=== PATIENT | female | born 1975 | race Caucasian/White ===

== ENCOUNTER 2017-03-19 17:08 | Emergency (ER) | payer BC ==
[~2017-03-19] VITALS: Ht 172.7 cm; Wt 112.8 kg
[2017-03-19 17:24] VITALS: TEMP 36.9; Ht 172.7 cm; Wt 112.8 kg
--- NOTE | 2017-03-19 18:57 | EMERGENCY ROOM VISIT NOTE ---
History Report prepared by Marimar: Ghada Vance Under the Supervision of: Dr. Shelton Whitney M.D. First contact with patient: 18:32 Chief Complaint: ABDOMINAL PAIN Stated Complaint: UPPER ABD PAIN,NAUSEA Nursing Triage Summary: "I'm having upper abdominal pain. I called my doctor, he told me to just come here." Pt also c/o nausea, denies vomiting. Also c/o chills. Symptoms ongoing for 3 days. Denies diarrhea. History of Present Illness The patient is a 42 year old white female with a past medical history of IBS and Evangelina's Thyroiditis, who presents to the ED with a cc of intermittent upper abdominal pain beginning 3 days ago. Positive chills, nausea. Negative headache, fevers, chest pain, SOB, vomiting, diarrhea, recent travel, sick contacts or antibiotic use. She rates her discomfort as a 5/10. Eating and drinking worsen her pain. Her LMP was in 2013 due a history of uterine ablation. She has been moving her bowels and urinating with no problems. Her last BM was this morning and normal. The patient called her doctors office for an appointment and states she was unable to get an appointment and was referred to the ED if her symptoms worsened. She admits she did start eating a Ketogenic diet approximately 3 weeks ago which may be related to her current symptoms. + ETOH use, -tobacco use. 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 A total of ten systems were reviewed and were otherwise negative. Past Medical & Surgical Medical Problems: (1) Evangelina's thyroiditis (2) IBS (irritable bowel syndrome) Social History Smoking Status: Never Smoker Alcohol Use: occasionally Drug Use: none Marital Status: single Housing Status: lives with family Occupation Status: employed Current/Historical Medications Scheduled Bsriywe-Inyqpeqnaedtm-Lkduiwzm (Excedrin Migraine), 1 TAB PO PRN UD Levothyroxine Sodium (Levothyroxine Sodium), 1 TAB PO DAILY Omeprazole (Prilosec), 20 MG PO DAILY Phentermine Hcl (Adipex P), 37.5 MG PO DAILY Venlafaxine Hcl (Effexor Extended Rel), 150 MG PO DAILY Scheduled PRN Cetirizine (Zyrtec), 10 MG PO DAILY PRN for ALLERGIC REACTION Cholecalciferol (Vitamin D 1000 Unit), 1,000 INTER.UNIT PO DAILY PRN for Ibuprofen Tab (Motrin), 800 MG PO Q8H PRN for Pain Tramadol (Ultram), 50 MG PO Q6 PRN for Pain Zinc Sulfate (Zinc 15), 1 TAB PO DAILY PRN for PRN Allergies Coded Allergies: Sulfa Antibiotics (Verified Allergy, Severe, ANAPHYLAXIS, 03/19/17) Amoxicillin (Verified Allergy, Unknown, HIVES, 03/19/17) hives Codeine (Verified Adverse Reaction, Severe, DIZZY, 03/19/17) INFO FROM [facility] Physical Exam Vital Signs Date Time Temp Pulse Resp B/P (MAP) Pulse Ox O2 Delivery O2 Flow Rate FiO2 03/19/17 21:21 90 16 116/80 100 03/19/17 19:19 89 18 121/85 100 Room Air 03/19/17 17:24 36.9 110 18 157/97 98 Room Air Physical Exam GENERAL: Awake, alert, well-appearing, NAD HENT: Normocephalic, atraumatic. EYES: Normal conjunctiva. Sclera non-icteric. NECK: Supple. No nuchal rigidity. FROM. RESPIRATORY: CTAB, no rhonchi, wheezing, crackles CARDIAC: RRR, no MRG ABDOMEN: Soft. Some RUQ tenderness, some epigastric tenderness, negative Pham' s sign, negative obturators and psoas. BS+ MSK: No chest wall TTP, no LE edema NEURO: GCS 15, CN 2-12 intact, moves all 4s on command SKIN: No rash or jaundice noted. Medical Decision & Procedures ER Provider Diagnostic Interpretation: Radiology results as stated below per my review and radiologist interpretation: ABDOMINAL ULTRASOUND, RIGHT UPPER QUADRANT HISTORY: RUQ TTP, epigastric pain. COMPARISON: None. FINDINGS: Hepatic echogenicity is increased. No hepatic lesions are identified although sensitivity is diminished on this exam due to suboptimal penetration. There is no biliary ductal dilatation. The common bile duct measures 3 mm in caliber. Pancreatic body is normal. The head and tail are obscured. No gallstones are identified. There may be minimal sludge within the gallbladder. There is no gallbladder wall thickening. There is no right hydronephrosis. IMPRESSION: 1. No gallstones or biliary ductal dilatation. 2. Possible trace sludge within the gallbladder. No gallbladder wall thickening. 3. Fatty liver. 4. Partially obscured pancreas. Electronically signed by: Kendall Ellington M.D. 03/19/2017 7:57 PM Laboratory Results 03/19/17 18:40 Red Blood Count 4.70, Mean Corpuscular Volume 91.9, Mean Corpuscular Hemoglobin 31.9, Mean Corpuscular Hemoglobin Concent 34.7, Mean Platelet Volume 9.7, Neutrophils (%) (Auto) 61.2, Lymphocytes (%) (Auto) 30.3, Monocytes (%) (Auto) 7.6, Eosinophils (%) (Auto) 0.5, Basophils (%) (Auto) 0.3, Neutrophils # (Auto) 5.85, Lymphocytes # (Auto) 2.90, Monocytes # (Auto) 0.73, Eosinophils # (Auto) 0.05, Basophils # (Auto) 0.03 03/19/17 18:40 Test 03/19/17 18:40 White Blood Count 9.57 K/uL (4.8-10.8) Red Blood Count 4.70 M/uL (4.2-5.4) Hemoglobin 15.0 g/dL (12.0-16.0) Hematocrit 43.2 % (37-47) Mean Corpuscular Volume 91.9 fL (80-100) Mean Corpuscular Hemoglobin 31.9 pg (25-34) Mean Corpuscular Hemoglobin Concent 34.7 g/dl (32-36) Platelet Count 256 K/uL (130-400) Mean Platelet Volume 9.7 fL (7.4-10.4) Neutrophils (%) (Auto) 61.2 % Lymphocytes (%) (Auto) 30.3 % Monocytes (%) (Auto) 7.6 % Eosinophils (%) (Auto) 0.5 % Basophils (%) (Auto) 0.3 % Neutrophils # (Auto) 5.85 K/uL (1.4-6.5) Lymphocytes # (Auto) 2.90 K/uL (1.2-3.4) Monocytes # (Auto) 0.73 K/uL (0.11-0.59) Eosinophils # (Auto) 0.05 K/uL (0-0.5) Basophils # (Auto) 0.03 K/uL (0-0.2) RDW Standard Deviation 40.2 fL (36.4-46.3) RDW Coefficient of Variation 11.9 % (11.5-14.5) Immature Granulocyte % (Auto) 0.1 % Immature Granulocyte # (Auto) 0.01 K/uL (0.00-0.02) Urine Color YELLOW Urine Appearance CLOUDY (CLEAR) Urine pH 5.0 (4.5-7.5) Urine Specific [place] 1.017 (1.000-1.030) Urine Protein NEG (NEG) Urine Glucose (UA) NEG (NEG) Urine Ketones 2+ (NEG) Urine Occult Blood NEG (NEG) Urine Nitrite NEG (NEG) Urine Bilirubin NEG (NEG) Urine Urobilinogen NEG (NEG) Urine Leukocyte Esterase NEG (NEG) Urine WBC (Auto) 10-30 /hpf (0-5) Urine RBC (Auto) 0-4 /hpf (0-4) Urine Hyaline Casts (Auto) 1-5 /lpf (0-5) Urine Epithelial Cells (Auto) >30 /lpf (0-5) Urine Bacteria (Auto) 2+ (NEG) Urine Pathogenic Casts /lpf (0) Urine Test NEG (NEG) Anion Gap 10.0 mmol/L (3-11) Est Creatinine Clear Calc Drug Dose 89.6 ml/min Estimated GFR () 72.7 Estimated GFR (Non- 62.8 BUN/Creatinine Ratio 12.3 (10-20) Calcium Level 9.9 mg/dl (8.5-10.1) Total Bilirubin 0.5 mg/dl (0.2-1) Direct Bilirubin 0.2 mg/dl (0-0.2) Aspartate Amino Transf (AST/SGOT) 16 U/L (15-37) Alanine Aminotransferase (ALT/SGPT) 27 U/L (12-78) Alkaline Phosphatase 54 U/L (45-117) Total Protein 8.4 gm/dl (6.4-8.2) Albumin 4.3 gm/dl (3.4-5.0) Lipase 174 U/L (73-393) Laboratory results reviewed by me Medications Administered Medications (Trade) Dose Ordered Sig/Nelly Route Start Time Stop Time Status Last Admin Dose Admin Sodium Chloride 1,000 ml @ 999 mls/hr Q1H1M STAT IV 03/19/17 18:58 03/19/17 19:58 DC 03/19/17 19:19 999 MLS/HR Ondansetron HCl (Zofran Inj) 4 mg NOW STAT IV 03/19/17 18:58 03/19/17 19:01 DC 03/19/17 19:18 4 MG Acetaminophen (Tylenol Tab) 650 mg NOW STAT PO 03/19/17 18:58 03/19/17 19:01 DC 03/19/17 19:18 650 MG Tramadol HCl (Ultram Tab) 50 mg NOW STAT PO 03/19/17 18:58 03/19/17 19:01 DC 03/19/17 19:18 50 MG ED Course 1845: The patient was evaluated in room B5. A complete history and physical exam was performed. 2049: I reevaluated the patient. She is feeling well. I discussed her results and discharge instructions and she verbalized complete understanding and agreement. Medical Decision The patient is a 42 year old white female with a past medical history of IBS and Evangelina's Thyroiditis, who presents to the ED with a cc of intermittent upper abdominal pain beginning 3 days ago. Triage Nursing notes reviewed. The patient's presentation and history were concerning for cholecystitis, cholelithiasis, gastritis and PUD. Patient was evaluated for her epigastric right upper quadrant pain. Had a normal white count and no elevations in her LFTs or lipase. Patient's UA was contaminated and does not have any signs or symptoms of UTI she did not have any burning or increased frequency lower back pain. Patient had a right upper quadrant ultrasound which showed maybe questionable sludge but otherwise, her wall was normal CBD was not dilated and there was no pericholecystic fluid. Patient was tolerating by mouth and did not have any other complaints of pain. Patient was informed of all findings was given advice to potentially help with her gastritis. Patient was instructed to follow-up, discharge, return precautions. Patient agree with the plan of care patient was discharged home. Medication Reconcilliation Current Medication List: was personally reviewed by me Blood Pressure Screening Patient's blood pressure: Elevated blood pressure Blood pressure disposition: Elevated BP felt to be situational Impression Primary Impression: Dyspepsia Additional Impression: Gastritis Scribe Attestation The scribe's documentation has been prepared under my direction and personally reviewed by me in its entirety. I confirm that the note above accurately reflects all work, treatment, procedures, and medical decision making performed by me. Departure Information Dispostion Home / Self-Care Referrals Ede Larkin M.D. (PCP) Patient Instructions ED Gastritis, ED PUD Vs Gastritis, My [facility] Additional Instructions Please return to the emergency department if you have worsening or recurrent symptoms not amenable to at-home treatment. Please call for a follow-up appointment with her primary care physician. Please take your medications as prescribed. If you have other concerns and/or complaints please feel free to also call your primary care physician's office or return the ED for further evaluation, management, and treatment. Please consider eating smaller meals. Please avoid caffeinated beverages, chocolate, citrus fruits, tomatoes, sauces, hot sauces. Please avoid taking Motrin if you're able. If you take Motrin taken with food. Do not take more than 800 mg every 6 hours. If he did have general aches and pains he may take 1000 mg of Tylenol or acetaminophen every 6 hours. Do not take more than 4000 mg in a 24-hour period. Problem Qualifiers Additional Impression: Gastritis Gastritis type: unspecified gastritis Chronicity: unspecified Gastritis bleeding: without bleeding Qualified Codes: K29.70 - Gastritis, unspecified, without bleeding
[2017-03-19] MEDS ORDERED: ONDANSETRON INJ 2 MG/ML 2 ML VIAL IV STA (18:58)
[2017-03-19] MEDS ORDERED: SODIUM CHLORIDE 0.9% 1000ML 1,000 ML IV STA (18:58)
[2017-03-19] MEDS ORDERED: ACETAMINOPHEN 325 MG TAB PO STA (18:58)
[2017-03-19] MEDS ORDERED: TRAMADOL HCL 50 MG TAB PO STA (18:58)
[2017-03-19 19:17] LABS: URINE APPEARANCE CLOUDY (CLEAR); URINE BILIRUBIN NEG (NEG); URINE COLOR YELLOW; URINE EPITHELIAL CELL AUTO >30 /lpf (0-5); URINE NITRITE NEG (NEG); URINE SPECIFIC GRAVITY 1.017 (1.000-1.030); UROBILINOGEN NEG (NEG); ZZUR CULT IF INDIC CLEAN CATCH YES
[2017-03-19 19:21] LABS: BASO % 0.3 %; BASO ABS # 0.03 K/uL (0-0.2); COMPLETE YES; EOS % 0.5 %; HEMATOCRIT 43.2 % (37-47); IG% 0.1 %; LYMPH % 30.3 %; MANUAL MICROSCOPIC REQUIRED? NO; MEAN CELL VOLUME 91.9 fL (80-100); MEAN CORPUSCULAR HEMOGLOBIN 31.9 pg (25-34); MEAN CORPUSCULAR HGB CONC 34.7 g/dl (32-36); MEAN PLATELET VOLUME 9.7 fL (7.4-10.4); MONO % 7.6 %; NEUT % 61.2 %; PLATELET COUNT 256 K/uL (130-400); REVIEW REQ? YES; WHITE BLOOD COUNT 9.57 K/uL (4.8-10.8)
[2017-03-19] MEDS ORDERED: TRAM-10 PO (19:36)
[2017-03-19] MEDS ORDERED: ZINC66TA PO (19:36)
[2017-03-19] MEDS ORDERED: CHOL100027 PO (19:36)
[2017-03-19] MEDS ORDERED: PHEN37.585 PO (19:36)
[2017-03-19] MEDS ORDERED: IBUP-1451 PO (19:36)
[2017-03-19] MEDS ORDERED: CETI10TA84 PO (19:36)
[2017-03-19] MEDS ORDERED: VENL150C56 PO (19:36)
[2017-03-19] MEDS ORDERED: ASPI-390 PO (19:36)
[2017-03-19] MEDS ORDERED: PRLSR20 PO (19:36)
[2017-03-19] MEDS ORDERED: LEVO75TA5 PO (19:36)
[2017-03-19 19:38] LABS: BUN/CREATININE RATIO 12.3 (10-20); CALCIUM 9.9 mg/dl (8.5-10.1); CREATININE 1.1 mg/dl (0.60-1.20); POTASSIUM 3.4 mmol/L (3.5-5.1)
--- NOTE | 2017-03-19 19:58 | DIAGNOSTIC IMAGING REPORT ---
ABDOMINAL ULTRASOUND, RIGHT UPPER QUADRANT HISTORY: RUQ TTP, epigastric pain. COMPARISON: None. FINDINGS: Hepatic echogenicity is increased. No hepatic lesions are identified although sensitivity is diminished on this exam due to suboptimal penetration. There is no biliary ductal dilatation. The common bile duct measures 3 mm in caliber. Pancreatic body is normal. The head and tail are obscured. No gallstones are identified. There may be minimal sludge within the gallbladder. There is no gallbladder wall thickening. There is no right hydronephrosis. IMPRESSION: 1. No gallstones or biliary ductal dilatation. 2. Possible trace sludge within the gallbladder. No gallbladder wall thickening. 3. Fatty liver. 4. Partially obscured pancreas. Electronically signed by: Kendall Ellington M.D. 03/19/2017 7:57 PM Dictated Date/Time: 03/19/2017 7:55 PM
[2017-03-19 21:21] VITALS: BP 116/80; PULSE 90; O2SAT 100
== END 2017-03-19 21:23 | disposition home or self-care (01) ==
LOC: C.EDB 17:09
DX: K29.70 Gastritis, unspecified, without bleeding (principal); K58.9 Irritable bowel syndrome, unspecified; E06.3 Autoimmune thyroiditis; Z79.899 Other long term (current) drug therapy

== ENCOUNTER 2025-06-15 07:17 | Inpatient (IN) ==
--- NOTE | 2025-06-05 10:51 | Anesthesiology Consultation ---
Date of Service June 05, 2025 Assessment & Plan (1) Encounter for pre-operative examination: - Infectious disease screening: Per assessment on 06/05/25- No known recent infectious disease contacts or current infectious disease symptoms. - Preop testing: No recent/preop EKG received. Will order EKG for DOS. Chart Review Chart Review: Acceptable Risk for Surgery (pending preop EKG DOS) and Patient NOT seen in Pre Admission Testing History Surgery Operation Date: 06/15/25 07:00 Proposed Procedures p Total Abdominal Hysterectomy, Preservation of Ovaries - Carmelo Ramsey MD Height/Weight Height: 5 ft 9 in Weight: 134.717 kg Allergies Allergy/AdvReac Type Severity Reaction Status Date / Time Sulfa (Sulfonamide Allergy Severe ANAPHYLAXIS Verified 06/05/25 10:24 Antibiotics) amoxicillin Allergy Unknown HIVES Verified 06/05/25 10:24 codeine AdvReac Severe DIZZY Verified 06/05/25 10:24 Medications Home Medications Medication Instructions Recorded Confirmed Last Taken Ibuprofen Tab (MOTRIN) 800 mg PO Q8H PRN Pain #0 tabs 03/19/17 Unknown Vitamin B-12 1 dose PO DAILY 06/05/25 06/05/25 Unknown acetaminophen 325 mg tablet 325 mg PO QID PRN Pain 06/05/25 06/05/25 Unknown (Tylenol) albuterol sulfate 90 mcg/actuation 2 puff inhalation 6XD PRN sob 06/05/25 06/05/25 Unknown aerosol inhaler azithromycin 250 mg tablet 250 mg PO DAILY ear infection 06/05/25 06/05/25 Unknown (Zithromax Z-Torrey) bupropion HCl 300 mg 24 hr tablet, 300 mg PO QAM 06/05/25 06/05/25 Unknown extended release (Wellbutrin XL) buspirone 5 mg tablet 5 mg PO BID 06/05/25 06/05/25 Unknown cetirizine 10 mg tablet 10 mg PO HS 06/05/25 06/05/25 Unknown cholecalciferol (vitamin D3) 50 50 mcg PO DAILY 06/05/25 06/05/25 Unknown mcg (2,000 unit) tablet (Vitamin D3) echinacea 450 mg capsule 900 mg PO DAILY 06/05/25 06/05/25 Unknown fluticasone propionate 50 1 spray intranasal DAILY 06/05/25 06/05/25 Unknown mcg/actuation nasal spray,suspension ibuprofen 400 mg tablet 400 mg PO Q6H PRN Pain 06/05/25 06/05/25 Unknown levothyroxine 75 mcg tablet 75 mcg PO QAM 06/05/25 06/05/25 Unknown magnesium 1 tab PO DAILY 06/05/25 06/05/25 Unknown metformin 500 mg tablet 500 mg PO HS 06/05/25 06/05/25 Unknown multivitamin 1 tab PO QAM 06/05/25 06/05/25 Unknown omega-3 fatty acids 1,000 mg PO DAILY 06/05/25 06/05/25 Unknown omeprazole 20 mg tablet,delayed 20 mg PO HS 06/05/25 06/05/25 Unknown release sertraline 50 mg tablet 50 mg PO QAM 06/05/25 06/05/25 Unknown turmeric 400 mg capsule 400 mg PO DAILY 06/05/25 06/05/25 Unknown Past Medical History Medical History Acid reflux Anxiety and depression Asthma Exercise induced, prn inhaler Ear infection Will complete abx 06/06/25 Evangelina's thyroiditis Hx of gastritis IBS (irritable bowel syndrome) Morbid obesity PCOS (polycystic ovarian syndrome) Seasonal allergies Snores Occasional Past Family History Family History Other No family history of adverse response to anesthesia Past Surgical History Surgical History History of endometrial ablation History of esophagogastroduodenoscopy (EGD) Hx of colonoscopy Hx of wisdom tooth extraction Social History Smoking Status: Never smoker Do You Dip or Chew Tobacco: No Hx Alcohol Use: No Hx Substance Use: No (otc cbd gummies prn - "has not used in a while") Testing Laboratory Results 05/31/25 WBC 4.42 H/H 13.0/41.2 PLATELETS 261 SODIUM 137 POTASSIUM 4.7 CHLORIDE 102 CO2 25 BUN 14 CREATININE 1.0 GLUCOSE 85 TSH 2.43 FREE T4 1.3 Chest X-Ray Date: 08/17/24 Findings: + NAD
[~2025-06-15 07:17] MED LIST: ACETAMINOPHEN 1000 MG/100 ML IV IV ONE
[2025-06-15 07:26] LABS: Hematocrit (blood only) 40.2 % (37.0-47.0); Hemoglobin 13.4 g/dl (12.0-16.0); Immature Granulocytes # (auto) 0.02 K/uL (0.01-0.20); Immature Granulocytes % (auto) 0.3 %; Mean Corpuscular Hemoglobin 29.6 pg (25.0-34.0); Mean Corpuscular Volume 88.9 fL (80.0-100.0); Platelet Count 254 K/uL (130-400); RDW Standard Deviation 40.5 fL (36.4-46.3); Red Blood Count 4.52 M/uL (4.20-5.40); White Blood Count 6.04 K/ul (4.8-10.8)
[2025-06-15] MEDS ORDERED: PROPOFOL IV EMULSION 10 MG/ML 20 ML VIAL IV ONE (07:57)
[2025-06-15] MEDS ORDERED: ROCURONIUM BROMIDE 10 MG/ML 5 ML VIAL IV ONE ×2 (07:57→09:33)
[2025-06-15] MEDS ORDERED: ONDANSETRON INJ 2 MG/ML 2 ML VIAL ONE ×2 (07:57→11:46)
[2025-06-15] MEDS ORDERED: LIDOCAINE 2% 2 ML VIAL/AMP(20MG/ML) INFIL ONE (07:57)
[2025-06-15] MEDS ORDERED: DEXAMETHASONE SOD INJ 4 MG/ML VIAL ONE (07:57)
[2025-06-15] MEDS ORDERED: MIDAZOLAM HCL 1 MG/ML 2ML VIAL ONE (07:58)
[2025-06-15] MEDS: CIPROFLOXACIN / D5W 400 MG/200 ML BAG IV SCH (08:01)
[2025-06-15] MEDS: LR 15ML/HR IV SCH (08:01)
[2025-06-15] MEDS ORDERED: MoRPHine SULFATE PF 1 MG/ML 10 ML AMP/VIAL ONE (08:29)
[2025-06-15] MEDS ORDERED: BUPIVACAINE 0.25% PF 30 ML VIAL ONE (08:34)
--- NOTE | 2025-06-15 08:38 | History & Physical Bridge Note ---
Date of Service June 15, 2025 History & Physical Bridge Note I have examined the patient, reviewed the History & Physical and in the interval since the performance of the History & Physical I have noted the following changes of clinical significance: no changes noted
[2025-06-15] MEDS: CLINDAMYCIN/D5W 900 MG/50 ML BAG IV SCH (09:26)
[2025-06-15] MEDS ORDERED: KETAMINE HCL 10MG/ML SYR ONE (09:31)
[2025-06-15] MEDS ORDERED: PHENYLEPHRINE 100MCG/ML 5ML SYR ONE (09:38)
[2025-06-15] MEDS ORDERED: DROPERIDOL 5 MG/2 ML VIAL ONE (09:45)
[2025-06-15] MEDS ORDERED: HYDROmorphone INJ 2 MG/ML SYR/VIAL ONE (10:47)
[2025-06-15] MEDS ORDERED: SUGAMMADEX SODIUM 200 MG/2 ML VIAL IV ONE (11:32)
[2025-06-15] MEDS: HEPARIN (PORCINE) 1000 UNIT/ML 10 ML (CATH LAB USE ONLY) ONE (11:43)
--- NOTE | 2025-06-15 12:12 | Operative Report ---
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 Then general anesthesia was administered. Vagina and abdomen was prepped with Betadine solution. Hardy catheter was inserted aseptically bladder connected to gravity drainage. Lower abdomen was prepped in usual sterile fashion with an alcohol-based sterilizing solution suprapubic area had been shaved. Compression stockings were applied. Patient was draped in usual sterile fashion. Pfannenstiel incision was made carried down to the anterior fascia by sharp dissection. Hemostasis was cleared by electrocauterization. Fascia was incised transversely from the underlying muscle and sharp dissection. Recti muscles were in the midline. The peritoneum was carefully raised and entered. An O'Vinnie- O'Flores self-retaining retractor was inserted into the abdomen. 4 laparotomy pads were used to pack off the intestines. Inspection of the pelvic cavity revealed a large fibroid uterus consistent with about a 10 weeks gestational size uterus. Both tubes and ovaries were normal. Hysterectomy was performed in usual fashion. Fundus was grasped with a double-tooth tenaculum. The round ligaments on either side were clamped cut and then doubly suture-ligated and tagged distal to the clamp. Incision was made above the vesicouterine fold and bladder was fine was advanced out of the operative field. Posterior leaf of the broad ligament was punched through bilaterally the fallopian tube and adnexa were clamped proximally and distally. They were cut. The distal stump was ligated with a transfixion suture chromic catgut in a more proximal suture of plain silk. Following this the uterine vessels on each side were skeletonized. They were clamped with a Carlos. Then cut with a knife. Then ligated with a chromic gut suture. This was done for both the right and left side. Stumps were then cauterized. The bladder was advanced out of the operative field. A curved Carlos was used to slide off the cervix. And then with a stump the cardinal ligaments were cut and ligated with a Chromic Gut suture. This was done in 3 steps because of the length of the cardinal ligaments. Each uterosacral ligament was clamped and cut and tagged individually. Cervix was then shelled out removing the surgical specimen consisting of uterus cervix fibroids. The angles of the vaginal cuff were suture-ligated the stumps of the cardinal ligaments on both the right and left side. The right and left fallopian tubes were approximated with a bite going through the cardinal ligam ents and then Lori to the midline and then back again. This was done on both right and left side. The midportion of the vaginal cuff was whipstitched open with a continuous interlocking suture chromic catgut. Lu drain was safety pin was placed into the vagina. The other end was placed into the cul-de-sac. Before placing the [place] drain I identified the uterosacral ligaments on each side and approximated them to had further support in the vaginal cuff this was approximated with interrupted [id number] suture of heavy Vicryl. Following the placement of the [place] drain. The round ligaments were brought down and tagged into the stumps of the cardinal ligaments on both the right and left side for support. The peritoneum was then approximated from the right side to the middle and from the left side to the middle covering all the raw edges the 2 sutures were then tied to each other. At this time pelvis was washed clean hemostasis was excellent. The packs were removed. The retractor was removed careful anatomical approximation of the anterior abdominal wall was performed. Peritoneum was closed with continuous suture chromic catgut. Recti muscles approximate erupted [id number] suture chromic catgut. Fascia was closed with continuous interlocking suture of Vicryl on each side tied in the midline. Subcu was then washed and approximated with a running plain. Skin edges are approximated with staple clips. Patient tolerated procedure well left the OR in good condition. I attest to the content of the Intraoperative Record and any orders documented therein. Any exceptions are noted below. diagnostic assistant was necessary for adequate exposure and safe surgery in this patient which had a high BMI
[2025-06-15] MEDS ORDERED: SENNA 8.6 MG TAB PO PRN (12:29)
[2025-06-15] MEDS ORDERED: MAGNESIUM HYDROXIDE SUSP 30 ML UDC PO PRN (12:29)
[2025-06-15] MEDS ORDERED: KETOROLAC 30 MG/ML VIAL IV PRN (12:29)
[2025-06-15] MEDS ORDERED: NALOXONE HCL 1 MG in SODIUM CHLORIDE 0.9% 1,000 ML IV PRN (12:31)
[2025-06-15] MEDS ORDERED: NALOXONE HCL 0.08 MG in SYRINGE 1.8 ML IV PRN (12:31)
[2025-06-15] MEDS ORDERED: NALBUPHINE HCL INJ 10 MG/ML AMP IV PRN (12:31)
[2025-06-15] MEDS ORDERED: LACTATED RINGER'S 500 ML IV PRN (12:31)
[2025-06-15] MEDS ORDERED: NALOXONE HCL 0.4 MG/1 ML VIAL/CARP IV PRN ×2 (12:31→12:34)
[2025-06-15] MEDS ORDERED: DROPERIDOL 5 MG/2 ML VIAL IV PRN (12:31)
[2025-06-15] MEDS ORDERED: ATROPINE SULFATE 0.1 MG/ML 10ML SYR IV PRN (12:34)
[2025-06-15] MEDS ORDERED: FLUMAZENIL 0.1 MG/1 ML 10 ML VIAL IV PRN (12:34)
[2025-06-15] MEDS: HYDROmorphone INJ 2 MG/ML SYR/VIAL IV PRN (12:37)
[2025-06-15] MEDS: PROMETHAZINE 6.25 MG/50.25 ML BAG IV PRN (12:39)
[2025-06-15] MEDS ORDERED: DC INTRASPINAL MORPHINE SCH (12:45)
[2025-06-15] MEDS ORDERED: NO NARCOTICS OR SEDATIVES SCH (12:45)
--- NOTE | 2025-06-15 12:45 | Electrocardiogram Report ---
Test Reason : Blood Pressure : */* mmHG Vent. Rate : 79 BPM Atrial Rate : 79 BPM P-R Int : 220 ms QRS Dur : 86 ms QT Int : 412 ms P-R-T Axes : 62 55 50 degrees QTcB Int : 472 ms Sinus rhythm with 1st degree A-V block Otherwise normal ECG No previous ECGs available Confirmed by Jayden Davis ([id number]) on 06/15/2025 12:45:22 PM Referred By: Carmelo Ramsey Confirmed By: Jayden Davis
[2025-06-15] MEDS: PROMETHAZINE HCL INJ 25 MG/ML 1 ML VIAL ONE (12:46)
[2025-06-15] MEDS: HYDROmorphone INJ 2 MG/ML SYR/VIAL ONE (12:47)
--- NOTE | 2025-06-15 13:22 | Anesthesiology Progress Note ---
Date of Service June 15, 2025 Anesthesia Post Procedure Vital Signs Vital Signs: Temp Pulse Resp BP Pulse Ox O2 Del Method O2 Flow Rate 06/15/25 13:20 80 12 100/74 100 Nasal Cannula 2 06/15/25 13:05 36.6 C 79 12 119/73 100 Nasal Cannula 2 06/15/25 12:55 78 14 114/64 99 Oxymask 4 06/15/25 12:45 76 12 101/63 95 Oxymask 4 06/15/25 12:35 78 16 102/59 L 97 Oxymask 4 06/15/25 12:25 84 20 110/63 94 Oxymask 4 06/15/25 12:15 81 16 107/64 95 Oxymask 4 06/15/25 12:08 36.2 C L 87 14 93/58 L 97 Oxymask 4 06/15/25 07:39 37.0 C 83 16 169/87 H 97 Room Air Pain Intensity Abdomen: Pain Intensity: 4 Transfer of Care Handoff Completed per policy Notes Mental Status: alert / awake / arousable Patient Amnestic to Procedure: Yes Nausea / Vomiting: adequately controlled Pain: adequately controlled Airway Patency, RR, SpO2: stable & adequate BP & HR: stable & adequate Hydration State: stable & adequate Anesthetic Complications: no major complications apparent
[2025-06-15] MEDS: LACTATED RINGER'S 1,000 ML IV SCH (16:20)
[2025-06-15] MEDS: SODIUM CHLORIDE 0.9% 1,000 ML IV SCH (16:21)
[2025-06-15] MEDS: MoRPHine SULFATE PF 1 MG/ML 10 ML AMP/VIAL INT SPINAL ONE (16:21)
[2025-06-15] MEDS: diphenhydrAMINE 50 MG/ML VIAL IV PRN (18:21)
[2025-06-15] MEDS: IBUPROFEN 600 MG TAB PO PRN (23:50)
[2025-06-16] MEDS ORDERED: PROMETHAZINE 25 MG/51 ML BAG IV PRN (06:32)
[2025-06-16] MEDS ORDERED: MEPERIDINE HCL 25 MG/ML CARP/VIAL IV PRN (06:32)
[2025-06-16 08:21] LABS: Hematocrit (blood only) 34.5 % (37.0-47.0); Hemoglobin 11.6 g/dl (12.0-16.0); Immature Granulocytes # (auto) 0.04 K/uL (0.01-0.20); Immature Granulocytes % (auto) 0.4 %; Mean Corpuscular Hemoglobin 30.5 pg (25.0-34.0); Mean Corpuscular Volume 90.8 fL (80.0-100.0); Platelet Count 232 K/uL (130-400); RDW Standard Deviation 40.7 fL (36.4-46.3); Red Blood Count 3.80 M/uL (4.20-5.40); White Blood Count 10.21 K/ul (4.8-10.8)
--- NOTE | 2025-06-16 09:23 | Obstetrical Progress Note ---
Date of Service June 16, 2025 Assessment & Plan Admission and Anticipated Discharge Date Admission Date: June 15, 2025 Subjective abdomen soft and non tender bowel sounds present and normal bandage removed incision is clean and dry vaginal bleeding scant hgb 11.6 Results & Data Vital Signs (Past 12 Hours) Vital Signs Temp Pulse Pulse Resp BP Pulse Ox O2 Del Method 06/16/25 07:47 Room Air 06/16/25 07:47 37 C 92 H 16 107/71 97 Room Air 06/16/25 05:48 16 95 06/16/25 04:48 18 94 06/16/25 03:00 16 95 06/16/25 02:00 18 94 06/16/25 02:00 36.9 C 95 H 18 138/77 94 Room Air 06/16/25 01:00 16 93 06/16/25 00:17 16 95 06/16/25 00:00 37.0 C 94 H 18 109/57 L 100 Room Air 06/15/25 23:40 18 94 06/15/25 22:36 18 93
[2025-06-16] MEDS: ONDANSETRON INJ 2 MG/ML 2 ML VIAL IV PRN (16:04)
[2025-06-16 23:49] VITALS: RESP 16
[2025-06-17 07:53] LABS: Hematocrit (blood only) 35.9 % (37.0-47.0); Hemoglobin 11.9 g/dl (12.0-16.0); Immature Granulocytes # (auto) 0.03 K/uL (0.01-0.20); Immature Granulocytes % (auto) 0.3 %; Mean Corpuscular Hemoglobin 30.2 pg (25.0-34.0); Mean Corpuscular Volume 91.1 fL (80.0-100.0); Platelet Count 209 K/uL (130-400); RDW Standard Deviation 41.3 fL (36.4-46.3); Red Blood Count 3.94 M/uL (4.20-5.40); White Blood Count 8.61 K/ul (4.8-10.8)
[2025-06-17 08:49] VITALS: PULSE 80; TEMP 98.8; O2SAT 96
[2025-06-17 09:33] VITALS: BP 105/70
--- NOTE | 2025-06-17 09:59 | Obstetrical Progress Note ---
Date of Service June 17, 2025 Assessment & Plan Admission and Anticipated Discharge Date Admission Date: June 15, 2025 Subjective Abdomen soft and nontender Incision is clean and dry Passing gas No calf tenderness Ambulating well Drain with safety pin removed from vaginal cuff Vaginal bleeding scant Hemoglobin 11.9 Results & Data Vital Signs (Past 12 Hours) Vital Signs Temp Pulse Resp BP BP Pulse Ox O2 Del Method 06/17/25 09:31 37.1 C 80 16 105/70 138/90 96 06/17/25 07:45 37.1 C 80 16 138/90 96 Room Air 06/16/25 23:43 36.9 C 85 16 105/70 Room Air
--- NOTE | 2025-06-17 10:06 | Discharge Summary ---
Date of Service June 17, 2025 Admission HPI Per Admitting Provider Patient is a 50-year-old female status post endometrial ablation. History of irregular bleeding. History of endometrial polyp. History of fibroids. Patient was experience heavy painful periods and also pelvic pain. The day of admission she was taken to the OR. Given prophylactic antibiotics. Underwent total abdominal hysterectomy with preservation of both ovaries. Suspension of the vaginal cuff. Postoperatively she did well. Postoperative hemoglobin was 11.9. She remained afebrile. Pain was well-controlled with intraspinal narcotics and oral nonnarcotic medications. At the time of discharge she was ambulating well eating well had no significant complaints. The Lu drain was removed from the vagina. She was given usual postoperative instructions. She has an appointment to get the geraldo taken out. Patient tolerated procedure well hospital in good condition. Discharge Data Procedures Performed Operation Date: 06/15/25 08:50 Actual Procedures p Total Abdominal Hysterectomy, Preservation of Ovaries(Not Applicable) - Carmelo Ramsey MD Hospital Course (1) Pelvic pain in female: Total abdominal hysterectomy with preservation of both ovaries Plan Follow-up in the office
== END 2025-06-17 10:40 | disposition home or self-care (01) | DRG 743 ==
LOC: ASU 07:17 → 4E1 12:29